=== PATIENT | female | born 1990 | race Two or more races ===

== ENCOUNTER 2017-12-05 22:25 | Inpatient (IN) | payer OTHER ==
--- NOTE | 2017-12-05 23:40 | HP ---
Past Medical History - Admission Chief Complaint: Vaginal bleeding in History of Present Illness: 27 yo @ 38 weeks gestation with previous in [place], presents c/ o vaginal bleeding. She was scheduled for on 12/12/17. History Source: Patient Limitations to Obtaining History: No Limitations - Past Medical History ...: 2 ...Para: 1 - Past Surgical History Past Surgical History: Yes: Hx Myomectomy: No Hx Transabdominal Cerclage: No - Smoking History Have you smoked in the past 12 months: No - Alcohol/Substance Use Hx Alcohol Use: No History of Substance Use: reports: None - Social History Usual Living Arrangement: Yes: With Spouse History of Recent Travel: No Family Disease History - Family Disease History Family History: Unremarkable Review of Systems - Review of Systems Constitutional: reports: No Symptoms Eyes: reports: No Symptoms HENT: reports: No Symptoms Neck: reports: No Symptoms Cardiovascular: reports: No Symptoms Respiratory: reports: No Symptoms Gastrointestinal: reports: No Symptoms Genitourinary: reports: Vaginal Bleeding Breasts: reports: No Symptoms Reported Musculoskeletal: reports: No Symptoms Integumentary: reports: No Symptoms Neurological: reports: No Symptoms Endocrine: reports: No Symptoms Hematology/Lymphatic: reports: No Symptoms Psychiatric: reports: No Symptoms Pain Intensity: 3 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 - Maternity Constitutional: Yes: Well Nourished Eyes: Yes: Conjunctiva Clear Neck: Yes: Supple Cardiovascular: Yes: Regular Rate and Rhythm Lungs: Clear to auscultation - Abdominal Exam/OB Number of Fetuses: Single Presentation: Vertex - Vaginal Exam/OB Dilatation (cm): 1 Effacement (%): 70 Presentation: Vertex/Position Station: -3 - 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 ...Motor Strength: WNL Psychiatric: Yes: Alert, Oriented Problem List - Problems (1) Previous section Code(s): Z98.891 - HISTORY OF UTERINE SCAR FROM PREVIOUS SURGERY (2) Vaginal bleeding Code(s): N93.9 - ABNORMAL UTERINE AND VAGINAL BLEEDING, UNSPECIFIED Assessment/Plan 38 weeks gestation Previous Vaginal bleeding Pre op for repeat
[2017-12-06 00:44] LABS: BASO % 0.3 % (0-2.0); EOS % 2.4 % (0-4.5); HEMATOCRIT 43.9 % (32.4-45.2); HEMOGLOBIN 14.8 GM/dL (10.7-15.3); MCH 29.3 pg (25.7-33.7); MCHC 33.7 g/dl (32.0-36.0); MEAN CELL VOLUME 86.8 fl (80-96); MEAN PLT VOLUME 10.1 fl (7.5-11.1); MONO % 6.8 % (3.8-10.2); NEUT % 66.5 % (42.8-82.8); PLATELET COUNT 209 K/MM3 (134-434); RBC 5.05 M/mm3 (3.60-5.2); RDW 14.2 % (11.6-15.6); WHITE BLOOD COUNT 10.4 K/mm3 (4.0-10.0)
[2017-12-06 00:57] VITALS: BMI 29.4
[2017-12-06 01:05] LABS: ANION GAP 11 MMOL/L (8-16); BLOOD UREA NITROGEN 6 mg/dL (7-18); CALCIUM 9.1 mg/dL (8.5-10.1); CHLORIDE 107 mmol/L (98-107); CO2 20 mmol/L (21-32); CREATININE 0.5 mg/dL (0.55-1.3); GLUCOSE,RANDOM 72 mg/dL (74-106); SODIUM 139 mmol/L (136-145)
[2017-12-06] MEDS ORDERED: morphine SULFATE/Preservative Free 0.5 MG/ML (1cc Syringe) ONE (01:43)
[2017-12-06] MEDS ORDERED: ceFAZolin SODIUM 1 GM VIAL ONE (02:01)
[2017-12-06] MEDS ORDERED: OXYTOCIN 10 UNITS/ML VIAL ONE (02:05)
[2017-12-06 02:29] LABS: INR 0.97 (0.83-1.09); PROTHROMBIN TIME (PATIENT) 11.4 SEC (9.7-13.0)
--- NOTE | 2017-12-06 02:32 | OP ---
Operative Note - Note: Operative Date: 12/06/17 Pre-Operative Diagnosis: Previous in labor Operation: Repeat Low Transverse Findings: Baby in LOT position Post-Operative Diagnosis: Same as Pre-op Surgeon: [facility] Television Rental Clerk: Ursula Farfan Anesthesia: Spinal Specimens Removed: Placenta Estimated Blood Loss (mls): 500 Operative Report Dictated: Yes
[2017-12-06] MEDS ORDERED: OXYTOCIN 20 UNITS in 0.9% NS 20 UNIT/1,000 ML INFUS.BAG IV ONE (02:56)
[2017-12-06] MEDS ORDERED: METHYLERGONOVINE MALEATE 0.2 MG/1 ML AMP IM PRN (03:09)
[2017-12-06] MEDS ORDERED: IBUPROFEN 800 MG/8 ML IJ IVPB PRN (03:09)
[2017-12-06] MEDS ORDERED: IBUPROFEN 600 MG TABLET (FP) PO PRN (03:09)
[2017-12-06] MEDS ORDERED: oxyCODONE HCL 5 MG TABLET PO PRN (03:09)
[2017-12-06] MEDS ORDERED: SIMETHICONE 80 MG TAB.CHEW (FP) PO PRN (03:09)
[2017-12-06] MEDS ORDERED: DEXTROSE 5%-LACTATED RINGERS 1,000 ML IV SCH (03:45)
[2017-12-06] MEDS ORDERED: CITRIC ACID/SODIUM CITRATE 30 ML UNIT-DOSE CUP PO ONE (03:45)
[2017-12-06] MEDS: OXYTOCIN 20 UNITS in 0.9% NS 20 UNIT/1,000 ML INFUS.BAG IV SCH ×2 (03:45→17:30)
[2017-12-06] MEDS ORDERED: ELECTROLYTE-148 SOLN 1,000 ML IV SCH (03:45)
[2017-12-06] MEDS: ONDANSETRON 4 MG/2 ML VIAL IVPUSH PRN ×2 (06:13→10:26)
[2017-12-06] MEDS: FERROUS SO4 325 MG TABLET (FP) PO SCH ×2 (10:11→22:10)
[2017-12-06] MEDS: PRENATAL VITAMINS W/ FOLIC ACID TABLET (FP) PO SCH (10:11)
[2017-12-07] MEDS ORDERED: BISACODYL 10 MG SUPP.RECT RC PRN (03:09)
--- NOTE | 2017-12-07 06:14 | PN ---
Post Progress Note - Subjective Subjective: 27 yo Para 2 status post repeat , seen and evaluated. Doing well. Post Day: 1 Type of Delivery: Repeat C/S Vital Signs: Vital Signs Temperature 98.6 F 12/07/17 02:00 Pulse Rate 84 12/07/17 02:00 Respiratory Rate 18 12/07/17 02:00 Blood Pressure 113/69 12/07/17 02:00 O2 Sat by Pulse Oximetry (%) Breast Exam: Yes: Soft Uterus: Yes: Fundus Firm Incision: Yes: Dressing dry and intact Abdomen/GI: Yes: Abdomen soft, Tolerating PO Lochia: Yes: Rubra Lochia, amount: Small Extremities: Yes: Calves non-tender Perineum: Yes: Intact Activity: Other (She's lying in bed) - Labs Labs: CBC WBC 10.4 K/mm3 (4.0-10.0) H 12/06/17 00:05 RBC 5.05 M/mm3 (3.60-5.2) 12/06/17 00:05 Hgb 14.8 GM/dL (10.7-15.3) 12/06/17 00:05 Hct 43.9 % (32.4-45.2) 12/06/17 00:05 MCV 86.8 fl (80-96) 12/06/17 00:05 MCH 29.3 pg (25.7-33.7) 12/06/17 00:05 MCHC 33.7 g/dl (32.0-36.0) 12/06/17 00:05 RDW 14.2 % (11.6-15.6) 12/06/17 00:05 Plt Count 209 K/MM3 (134-434) 12/06/17 00:05 MPV 10.1 fl (7.5-11.1) 12/06/17 00:05 Absolute Neuts (auto) 6.9 K/mm3 (1.5-8.0) 12/06/17 00:05 Neutrophils % 66.5 % (42.8-82.8) 12/06/17 00:05 Lymphocytes % 24.0 % (8-40) 12/06/17 00:05 Monocytes % 6.8 % (3.8-10.2) 12/06/17 00:05 Eosinophils % 2.4 % (0-4.5) 12/06/17 00:05 Basophils % 0.3 % (0-2.0) 12/06/17 00:05 Nucleated RBC % 0 % (0-0) 12/06/17 00:05 Problem List - Problems (1) Previous section Code(s): Z98.891 - HISTORY OF UTERINE SCAR FROM PREVIOUS SURGERY (2) Vaginal bleeding Code(s): N93.9 - ABNORMAL UTERINE AND VAGINAL BLEEDING, UNSPECIFIED (3) Status post repeat low transverse section Code(s): Z98.891 - HISTORY OF UTERINE SCAR FROM PREVIOUS SURGERY Assessment/Plan Status post repeat Low Transverse Stable Ambulation Analgesia as needed Continue routine post op care
[2017-12-07 07:59] LABS: BASO % 0.6 % (0-2.0); HEMOGLOBIN 13.3 GM/dL (10.7-15.3); LYMPH % 15.4 % (8-40); MCH 29.9 pg (25.7-33.7); MCHC 34.1 g/dl (32.0-36.0); MEAN CELL VOLUME 87.6 fl (80-96); MEAN PLT VOLUME 9.7 fl (7.5-11.1); MONO % 8.7 % (3.8-10.2); NEUT % 72.3 % (42.8-82.8); PLATELET COUNT 188 K/MM3 (134-434); RBC 4.45 M/mm3 (3.60-5.2); RDW 14.5 % (11.6-15.6); WHITE BLOOD COUNT 11.4 K/mm3 (4.0-10.0)
[2017-12-07] MEDS: PRENATAL VITAMINS W/ FOLIC ACID TABLET (FP) PO SCH (10:50)
[2017-12-07] MEDS: FERROUS SO4 325 MG TABLET (FP) PO SCH ×2 (10:50→21:19)
--- NOTE | 2017-12-07 12:06 | PN ---
Progress Note (short form) - Note Progress Note: Anesthesiology Post-op 27 y.o. woman POD#1 s/p C/S under spinal anesthesia. Pt. is awake and sitting comfortably with baby. She has no complaints and is able to walk without difficulty. VSS. 27 y.o. woman with stable post-operative course. Continue management as per primary team.
[2017-12-08] MEDS: PRENATAL VITAMINS W/ FOLIC ACID TABLET (FP) PO SCH (10:01)
[2017-12-08] MEDS: FERROUS SO4 325 MG TABLET (FP) PO SCH ×2 (10:01→21:25)
--- NOTE | 2017-12-08 11:30 | PN ---
Post Progress Note - Subjective Subjective: 27 yo Para 2 status post status post , seen and evaluated. Doing well. Post Day: 2 Type of Delivery: Repeat C/S Vital Signs: Vital Signs Temperature 98.9 F 12/08/17 08:52 Pulse Rate 69 12/08/17 08:52 Respiratory Rate 20 12/08/17 08:52 Blood Pressure 108/60 12/08/17 08:52 O2 Sat by Pulse Oximetry (%) Breast Exam: Yes: Soft Uterus: Yes: Fundus Firm Incision: Yes: Dressing dry and intact Abdomen/GI: Yes: Abdomen soft, Tolerating PO Lochia: Yes: Rubra Lochia, amount: Small Extremities: Yes: Calves non-tender Perineum: Yes: Intact Activity: Ambulating - Labs Labs: CBC WBC 11.4 K/mm3 (4.0-10.0) H 12/07/17 07:00 RBC 4.45 M/mm3 (3.60-5.2) 12/07/17 07:00 Hgb 13.3 GM/dL (10.7-15.3) 12/07/17 07:00 Hct 39.0 % (32.4-45.2) 12/07/17 07:00 MCV 87.6 fl (80-96) 12/07/17 07:00 MCH 29.9 pg (25.7-33.7) 12/07/17 07:00 MCHC 34.1 g/dl (32.0-36.0) 12/07/17 07:00 RDW 14.5 % (11.6-15.6) 12/07/17 07:00 Plt Count 188 K/MM3 (134-434) 12/07/17 07:00 MPV 9.7 fl (7.5-11.1) 12/07/17 07:00 Absolute Neuts (auto) 8.3 K/mm3 (1.5-8.0) H 12/07/17 07:00 Neutrophils % 72.3 % (42.8-82.8) 12/07/17 07:00 Lymphocytes % 15.4 % (8-40) D 12/07/17 07:00 Monocytes % 8.7 % (3.8-10.2) 12/07/17 07:00 Eosinophils % 3.0 % (0-4.5) 12/07/17 07:00 Basophils % 0.6 % (0-2.0) 12/07/17 07:00 Nucleated RBC % 0 % (0-0) 12/07/17 07:00 Problem List - Problems (1) Previous section Code(s): Z98.891 - HISTORY OF UTERINE SCAR FROM PREVIOUS SURGERY (2) Vaginal bleeding Code(s): N93.9 - ABNORMAL UTERINE AND VAGINAL BLEEDING, UNSPECIFIED (3) Status post repeat low transverse section Code(s): Z98.891 - HISTORY OF UTERINE SCAR FROM PREVIOUS SURGERY Assessment/Plan Status post repeat Low Transverse Stable Ambulation Analgesia as needed Continue routine post op care
--- NOTE | 2017-12-09 04:28 | PN ---
Post Progress Note Type of Delivery: Repeat C/S Vital Signs: Vital Signs Temperature 98.8 F 12/08/17 22:00 Pulse Rate 73 12/08/17 22:00 Respiratory Rate 18 12/08/17 22:00 Blood Pressure 112/81 12/08/17 22:00 O2 Sat by Pulse Oximetry (%) Breast Exam: Yes: Soft Uterus: Yes: Fundus Firm Incision: Yes: Dressing dry and intact Abdomen/GI: Yes: Abdomen soft Lochia: Yes: Rubra Lochia, amount: Small - Labs Labs: CBC WBC 11.4 K/mm3 (4.0-10.0) H 12/07/17 07:00 RBC 4.45 M/mm3 (3.60-5.2) 12/07/17 07:00 Hgb 13.3 GM/dL (10.7-15.3) 12/07/17 07:00 Hct 39.0 % (32.4-45.2) 12/07/17 07:00 MCV 87.6 fl (80-96) 12/07/17 07:00 MCH 29.9 pg (25.7-33.7) 12/07/17 07:00 MCHC 34.1 g/dl (32.0-36.0) 12/07/17 07:00 RDW 14.5 % (11.6-15.6) 12/07/17 07:00 Plt Count 188 K/MM3 (134-434) 12/07/17 07:00 MPV 9.7 fl (7.5-11.1) 12/07/17 07:00 Absolute Neuts (auto) 8.3 K/mm3 (1.5-8.0) H 12/07/17 07:00 Neutrophils % 72.3 % (42.8-82.8) 12/07/17 07:00 Lymphocytes % 15.4 % (8-40) D 12/07/17 07:00 Monocytes % 8.7 % (3.8-10.2) 12/07/17 07:00 Eosinophils % 3.0 % (0-4.5) 12/07/17 07:00 Basophils % 0.6 % (0-2.0) 12/07/17 07:00 Nucleated RBC % 0 % (0-0) 12/07/17 07:00 Problem List - Problems (1) Status post repeat low transverse section Assessment/Plan: pt s/p c/s doing well ambulation encouraged Code(s): Z98.891 - HISTORY OF UTERINE SCAR FROM PREVIOUS SURGERY
[2017-12-09 07:46] LABS: BASO % 0.7 % (0-2.0); EOS % 5.9 % (0-4.5); HEMATOCRIT 42.3 % (32.4-45.2); LYMPH % 21.5 % (8-40); MCH 29.1 pg (25.7-33.7); MCHC 33.2 g/dl (32.0-36.0); MEAN CELL VOLUME 87.8 fl (80-96); MEAN PLT VOLUME 9.1 fl (7.5-11.1); MONO % 8.9 % (3.8-10.2); PLATELET COUNT 219 K/MM3 (134-434); RBC 4.82 M/mm3 (3.60-5.2); RDW 14.7 % (11.6-15.6); WHITE BLOOD COUNT 8.9 K/mm3 (4.0-10.0)
[2017-12-09 08:32] VITALS: BP 121/78; PULSE 69; TEMP 98
[2017-12-09] MEDS: FERROUS SO4 325 MG TABLET (FP) PO SCH (10:55)
[2017-12-09] MEDS: PRENATAL VITAMINS W/ FOLIC ACID TABLET (FP) PO SCH (10:55)
--- NOTE | 2017-12-11 15:31 | PATH ---
Surgical Pathology Report Patient Name: CHAPINCITO MORROW Med. Rec. #: [id number] /Age/Gender: 1990 (Age: 27) / F Account: [id number] Location: [facility] OBS/ECHO VASC TECH Taken: 12/06/2017 Received: 12/07/2017 Reported: 12/11/2017 Physicians: Claudette Roach M.D. Specimen(s) Received PLACENTA Clinical History Repeat Final Diagnosis PLACENTA, SECTION: 471 G THIRD TRIMESTER PLACENTA WITH TRIVASCULAR UMBILICAL CORD AND UNREMARKABLE PLACENTAL MEMBRANES. Electronically Signed Pat Danielle M.D. Gross Description The specimen is received fresh labeled placenta and is a 471 gram, 16.0 x 15.0 x 2.8 cm. placenta with attached membranes and umbilical cord. The attached membranes are villegas, thick, opaque and insert marginally. The umbilical cord measures 23 cm. in length and averages 1.1 cm. in diameter. The cord inserts at the margin. No true knots or strictures are identified. Cut surface of the umbilical cord reveals 3 vessels. The surface is martinez-blue with moderate fibrin deposition and appropriate caliber vessels. The maternal surface is red-brown with focal defects. Sectioning reveals red-brown, spongy parenchyma. No lesions are identified. Heel Lift Gouger sections are submitted in three cassettes as follows: 1- membrane rolls and umbilical cord; 2-3- full thickness sections of placenta. /12/10/2017 saudi/12/10/2017
--- NOTE | 2018-01-17 21:23 | OP ---
DATE OF OPERATION: 12/06/2017 PREOPERATIVE DIAGNOSIS: Previous section, in labor. POSTOPERATIVE DIAGNOSIS: Previous section, in labor. PROCEDURE: Repeat low transverse section. SURGEON: Claudette Roach MD ORCHID GROWER: Ursula Farfan MD ANESTHESIA: Spinal. COMPLICATIONS: None. ESTIMATED BLOOD LOSS: 500 mL PROCEDURE: Patient was taken to the operating room where spinal anesthesia was administered. Patient was then prepped and draped in the proper sterile fashion. A Pfannenstiel skin incision was made and carried down through the underlying layer of fascia. The fascia was incised in the midline and extended laterally. The superior aspect of the fascial incision was then grasped with Delia clamp, elevated and the rectus muscles were dissected off bluntly. Attention was then turned to the inferior aspect of the fascial incision, which in a similar fashion was then grasped with Delia clamp, elevated, and the rectus muscle was dissected off bluntly. The rectus muscle was then in the midline. The peritoneum was identified and entered sharply with Metzenbaum scissors. The peritoneal incision was then extended superiorly and inferiorly with good visualization of the bladder. The vesicouterine peritoneum was then grasped with a pickup and entered sharply with Metzenbaum scissors. This incision was extended laterally and a bladder flap was created digitally. The lower uterine segment was incised using a 10-blade. This incision was extended laterally and the head delivered atraumatically. Nose and mouth were suctioned and the cord was clamped and cut. The was handed to the awaiting electric stove installer. The placenta was removed manually. The uterus was exteriorized and cleared of all clots and debris. The uterine incision was repaired using 0 Biosyn in a running locked fashion. A second layer of the same suture was used as a means to provide excellent hemostasis. The pelvis was completely irrigated. The uterus was returned to the abdomen. The peritoneum was closed using 2-0 Biosyn and the fascia was reapproximated using 0 Vicryl in a running fashion. The skin was closed with mark. Patient tolerated the procedure well. Patient was then taken to the PACU in stable condition. PATHOLOGY: Placenta. Asya SINGH/[id number]
== END 2017-12-09 12:30 | disposition home or self-care (01) | DRG 540 ==
LOC: JDEL 22:25 → JLDR 22:40 → J3W 12-06 04:30
PROVIDERS: ADMIT Obstetrics & Gynecology; ATTEND Obstetrics & Gynecology
PROC: 10D00Z1 Extraction of Products of Conception, Low, Open Approach (ICD-10-PCS; principal; 2017-12-06)
DX: O34.219 Maternal care for unspecified type scar from previous cesarean delivery (principal); Z3A.38 38 weeks gestation of pregnancy; Z37.0 Single live birth
CPT/HCPCS: 36415; 59025; 80048; 85025; 85610; 85730; 86593; 86850; 86900; 86901; 87389; 88307-TC; 90686; G0008

== ENCOUNTER 2019-10-31 07:09 | Inpatient (IN) | payer OTHER ==
--- NOTE | 2019-10-31 07:57 | HP ---
Past Medical History - Primary Care Physician PCP:: Raghu Sam (term ) - Admission Chief Complaint: term History of Present Illness: Previous c/section. Uneventful gestation. GBS neg. Covid neg. 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 TECHNICIAN: No: Alzheimer's, CVA, Dementia, Migraine, Multiple Sclerosis, Peripheral Neuropathy, Parkinson's, Seizure, Syncope, TIA, Vertigo, Other Cardiovascular: No: AFIB, Aneurysm, Aortic Insufficiency, Aortic Stenosis, CAD, CHF, Deep Vein Thrombosis, HTN, Hyperlipdemia, RI, Mitral Insufficiency, Mitral Stenosis, Murmur, Pulmonary Hypertension, Other Pulmonary: No: Asthma, Bronchitis, Cancer, COPD, O2 Dependent, Pneumonia, Previously Intubated, Pulmonary Embolus, Pulmonary Fibrosis, Sleep Apnea, Other Gastrointestinal: No: Ascites, Cancer, Constipation, Crohn's Disease, Diverticulitis, Diverticulosis, Esophageal Varices, Gastritis, GERD, GI Bleed, Hemorrhoids, Hiatal Hernia, Inflamatory Bowel Disease, Irritable Bowel Disease, Pancreatitis, Peptic Ulcer Disease, Ulcerative Colitis, Other Hepatobiliary: No: Cirrhosis, Cholelithiasis, Cholecystitis, Choledocholithiasis, Hepatitis A, Hepatitis B, Hepatitis C, Other Renal/: No: Renal Failure, Renal Inusuff, BPH, Cancer, Hematuria, Hemodialysis, Neurogenic Bladder, Renal Calculi, UTI, Other ... Weeks Gestation by Dates: 39.1 ...EDC by Dates: 11/06/19 Heme/Onc: No: Anemia, B12 Deficiency, Bleeding Disorder, Cancer, Current Chemotherapy, Current Radiation Therapy, Hemochromatosis, Hypercoaguable State, Myeloproliferative Synd, Sickle Cell Disease, Sickle Cell Trait, Thrombocytopenia, Other Infectious Disease: No: AIDS, C-Diff, Herpes Zoster, HIV, MRSA, STD's, Tuberculosis, VREF, Other Psych: No: Addictions, Anxiety, Bipolar, Depression, Panic, Psychosis, Schizophrenia, Other Musculoskeletal: No: Bursitis, Chronic low back pain, Hemiparesis, Hemiplegia, Osteoarthritis, Paraplegia, Other Rheumatology: No: Fibromyalgia, Gout, Lupus, Rheumatoid Arthritis, Sarcoidosis, Vasculitis, Other Endocrine: No: [place]'s Disease, Irving's Disease, Diabetes Insipidus, Diabetes Mellitus, Hyperparathyroidism, Hyperthyroidism, Hypothyroidism, Osteopenia, SIADH, Other - Past Surgical History Past Surgical History: Yes: . No: None, AAA Repair, AICD, Amputation, Appendectomy, Arthrosocopy, AV Fistula/Graft, Bariatric Surgery, Breast Biopsy, Bypass, CABG, Carotid Endarterectomy, Cataract Removal, Cholecystectomy, Colectomy, Colonoscopy, Colostomy, Craniotomy, Cystectomy, Hernia Repair, Hysterectomy, Ileal Conduit, Ileosotomy, Joint Replacement, Kidney Transplant, Laminectomy, Liver Transplant, Mastectomy, Nephrectomy, Oopherectomy, Orchiectomy, Permanent Pacemaker, Prostatectomy, Splenectomy, Stent, Thoracotomy, TURP, Tonsillectomy, Tubal Ligation, Upper Endoscopy, Valve Replacement, Vasectomy, Vein Stripping/Ligation Hx Myomectomy: No Hx Transabdominal Cerclage: No - Smoking History Smoking history: Never smoked Have you smoked in the past 12 months: No - Alcohol/Substance Use Hx Alcohol Use: No History of Substance Use: reports: None - Social History History of Recent Travel: No Home Medications - Allergies Allergies/Adverse Reactions: Allergies Allergy/AdvReac Type Severity Reaction Status Date / Time No Known Allergies Allergy Verified 12/06/17 03:02 Family Medical History Family History: Unremarkable Review of Systems - Review of Systems Constitutional: reports: No Symptoms Eyes: reports: No Symptoms HENT: reports: No Symptoms Neck: reports: No Symptoms Cardiovascular: reports: No Symptoms Respiratory: reports: No Symptoms Gastrointestinal: reports: No Symptoms Genitourinary: reports: No Symptoms Breasts: reports: No Symptoms Reported Musculoskeletal: reports: No Symptoms Integumentary: reports: No Symptoms Neurological: reports: No Symptoms Endocrine: reports: No Symptoms Hematology/Lymphatic: reports: No Symptoms Psychiatric: reports: No Symptoms 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 - Maternity Constitutional: Yes: Well Nourished, No Distress, Calm Eyes: Yes: WNL, Conjunctiva Clear, EOM Intact HENT: Yes: WNL, Atraumatic, Normocephalic Neck: Yes: WNL, Supple, Trachea Midline Cardiovascular: Yes: WNL, Regular Rate and Rhythm Breast(s): Yes: WNL - Abdominal Exam/OB Fundal Height: 38 Number of Fetuses: Single Presentation: Vertex Contractions: No Monitor Mode: External Heart Rate (range): 140 Heart Rate Location: [facility] Category: I Accelerations: Uniform Decelerations: None - Vaginal Exam/OB Vaginal Bleeding: No Dilatation (cm): 0 Effacement (%): 0 Amniotic Membrane Status: Intact Station: -2 - 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 Musculoskeletal: Yes: WNL Extremities: Yes: WNL Integumentary: Yes: WNL Psychiatric: Yes: WNL Problem List - Problems (1) Term Code(s): Z34.90 - ENCNTR FOR SUPRVSN OF NORMAL , UNSP, UNSP TRIMESTER (2) Previous section Code(s): Z98.891 - HISTORY OF UTERINE SCAR FROM PREVIOUS SURGERY Assessment/Plan at term. Previous c/section. For repeat c/section. All fully discussed. Risks, possible complications reviewed. Patient understands and consents.
[2019-10-31 08:18] VITALS: BMI 29.3
[2019-10-31 08:38] LABS: BASO % 0.4 % (0-2.0); EOS % 3.1 % (0-4.5); HEMATOCRIT 36.2 % (32.4-45.2); HEMOGLOBIN 12.4 GM/dL (10.7-15.3); LYMPH % 26.4 % (8-40); MCH 28.4 pg (25.7-33.7); MCHC 34.2 g/dl (32.0-36.0); MEAN PLT VOLUME 10.6 fl (7.5-11.1); MONO % 7.1 % (3.8-10.2); PLATELET COUNT 190 K/MM3 (134-434); RBC 4.36 M/mm3 (3.60-5.2); RDW 13.7 % (11.6-15.6); WHITE BLOOD COUNT 10.2 K/mm3 (4.0-10.0)
[2019-10-31 08:45] LABS: INR 0.99 (0.83-1.09); PROTHROMBIN TIME (PATIENT) 11.7 SEC (9.7-13.0)
[2019-10-31] MEDS ORDERED: CITRIC ACID/SODIUM CITRATE 30 ML UNIT-DOSE CUP PO ONE ×2 (08:45→09:45)
[2019-10-31] MEDS ORDERED: ELECTROLYTE-148 SOLN 500 ML IV SCH (08:45)
[2019-10-31 08:48] LABS: ACTIVATED PTT 30.1 SECONDS (25.2-36.5)
[2019-10-31] MEDS: ELECTROLYTE-148 SOLN 1,000 ML IV SCH (09:00)
[2019-10-31 09:03] LABS: BLOOD UREA NITROGEN 9.6 mg/dL (7-18); CALCIUM 8.5 mg/dL (8.5-10.1); CREATININE 0.5 mg/dL (0.55-1.3); POTASSIUM 3.8 mmol/L (3.5-5.1)
[2019-10-31] MEDS ORDERED: PROPOFOL 20 ML ONE (09:29)
[2019-10-31] MEDS ORDERED: morphine SULFATE/PF 0.5 MG/ML (2cc Syringe - QUVA) ONE (09:30)
[2019-10-31] MEDS ORDERED: ONDANSETRON 4 MG/2 ML VIAL IVPB PRN (09:42)
[2019-10-31] MEDS ORDERED: SIMETHICONE 80 MG TAB.CHEW (FP) PO PRN (09:42)
[2019-10-31] MEDS ORDERED: ACETAMINOPHEN 1000 MG/100 ML VIAL (NON FORMULARY) IVPB PRN (09:42)
[2019-10-31] MEDS ORDERED: oxyCODONE HCL 5 MG TABLET PO PRN (09:42)
[2019-10-31] MEDS ORDERED: ePHEDrine SULFATE 50 MG/1 ML AMPULE ONE (09:59)
[2019-10-31] MEDS ORDERED: ceFAZolin SODIUM 1 GM VIAL ONE (10:03)
[2019-10-31] MEDS ORDERED: OXYTOCIN 20 UNITS in 0.9% NS 40 UNIT/2,000 ML INFUS.BAG IV ONE (10:20)
[2019-10-31] MEDS ORDERED: morphine SULFATE/PF 0.5 MG/ML (2cc Syringe - QUVA) EP ONE (11:26)
[2019-10-31] MEDS ORDERED: ONDANSETRON 4 MG/2 ML VIAL IVPUSH PRN (11:26)
[2019-10-31] MEDS ORDERED: IBUPROFEN 800 MG/8 ML IJ IVPB ONE (12:52)
[2019-10-31] MEDS: IBUPROFEN 800 MG/8 ML IJ IVPB PRN (12:55)
--- NOTE | 2019-10-31 13:07 | OP ---
Operative Note - Note: Operative Date: 10/31/19 Pre-Operative Diagnosis: full term for elective Operation: Repeat Post-Operative Diagnosis: Same as Pre-op Surgeon: Raghu Sam Elevator Examiner And Adjuster: Janae Gloria Anesthesiologist/OCEAN FORWARDER: Jaylin Thomas MD Anesthesia: Spinal, MAC Estimated Blood Loss (mls): 600 Operative Report Dictated: Yes
--- NOTE | 2019-10-31 13:08 | SURG ---
Surgery Park Maintenance Technician Note Park Maintenance Technician: Janae Gloria PA-C Date of Service: 10/31/19 Diagnosis: full term for elective Procedure: Repeat I was present for the entirety of the operative procedure. For further detail, please refer to operative report. Visit type - Case Type Case Type: Scheduled - Emergency Emergency Visit: No - New patient This patient is new to me today: Yes Date on this admission: 10/31/19
--- NOTE | 2019-10-31 13:09 | OP ---
DATE OF OPERATION: DATE OF DICTATION: 10/31/2019 PREOPERATIVE DIAGNOSIS: Intrauterine at term, previous section x2. POSTOPERATIVE DIAGNOSIS: Intrauterine at term, previous section x2, adhesions. PROCEDURE: 1. Repeat low segment transverse section. 2. Resection of keloid. 3. Lysis of adhesions. SURGEON: Raghu Reardon MD CASEWORKER PROTECTIVE SERVICES: Janae Gloria PA-C ANESTHESIA: Spinal, Jaylin Thomas MD PROCEDURE & FINDINGS: Under excellent spinal block following routine prep and drape, old scar was excised. The incision was carried transversely through the subcutaneous tissue and fascia. Fascia was dissected off the recti muscles which were divided in the midline. Peritoneum was entered sharply in the upper part of the incision and extended vertically. Term uterus with normal adnexa was noted. There were adhesions between omentum and bladder to the anterior wall of the uterus and fundus. All adhesions were sharply lysed and the anatomy was restored. Hemostasis was attended to it carefully. Lower uterine segment was then opened transversely with scalpel and extended laterally with bandage scissors. Amniotic membrane was ruptured and clear amniotic fluid was noted. Female live was delivered through the hysterotomy, breathing and cried spontaneously. The baby was suctioned. The cord was divided with a delay. Baby was handed to the team and received 's 9 and 9. Placenta was removed from the uterine cavity. Cavity was cleaned and internal os was dilated with a sponge stick. Hysterotomy was closed with single layer interlocking Biosyn 0 suture. Uterus was placed in the pelvis anatomically and lavage was carried out. Hemostasis was attended to meticulously. Abdomen was closed in layers. Peritoneum was closed with continuous running Biosyn 0, fascia with continuous running Vicryl 1 sutures. Subcutaneous tissue was closed with interrupted Biosyn 0 sutures and skin was approximated with subcuticular suture and Steri-Strips. Patient withstood the procedure very well. The only complication was tiny, pin point Bovie burn on the anterior thigh which was immediately noted and patient was subsequently informed. Estimated blood loss was 600 mL. Patient was transferred to the recovery room stable and comfortable. Urine was clear in the Gottlieb catheter bag and ample. RAGHU REARDON MD JR/[id number]
[2019-10-31] MEDS: OXYTOCIN 20 UNITS in 0.9% NS 20 UNIT/1,000 ML INFUS.BAG IV SCH (14:26)
[2019-10-31] MEDS ORDERED: SENNOSIDES/DOCUSATE COMBO (SENNA PLUS) TABLET (UD) PO PRN (22:00)
[2019-11-01] MEDS: IBUPROFEN 800 MG/8 ML IJ IVPB PRN (04:03)
[2019-11-01 08:14] LABS: BASO % 0.2 % (0-2.0); EOS % 1.7 % (0-4.5); HEMATOCRIT 37.3 % (32.4-45.2); HEMOGLOBIN 12.4 GM/dL (10.7-15.3); LYMPH % 11.7 % (8-40); MCH 27.6 pg (25.7-33.7); MCHC 33.3 g/dl (32.0-36.0); MEAN CELL VOLUME 82.9 fl (80-96); MEAN PLT VOLUME 10.3 fl (7.5-11.1); MONO % 6.7 % (3.8-10.2); NEUT % 79.7 % (42.8-82.8); PLATELET COUNT 190 K/MM3 (134-434); RBC 4.51 M/mm3 (3.60-5.2); RDW 13.6 % (11.6-15.6); WHITE BLOOD COUNT 15.7 K/mm3 (4.0-10.0)
--- NOTE | 2019-11-01 08:18 | PN ---
Progress Note (short form) - Note Progress Note: Surgery POD #1 repaat . Patient seen and examined on AM rounds with no complaints. She states her pain is controlled and she is OOB ambulating and voiding without limitation. Denies N/V/Fever , chills, CP and SOB. Vital Signs Temp 98.2 F 11/01/19 06:00 Pulse 94 H 11/01/19 06:00 Resp 20 11/01/19 06:00 BP 110/58 L 11/01/19 06:00 Pulse Ox 96 11/01/19 06:00 Intake & Output 10/31/19 10/31/19 11/01/19 11:59 23:59 11:59 Intake Total 1200 1150 500 Output Total 50 700 300 Balance 1150 450 200 Weight 171 lb Intake: IV 1200 900 500 NORMAL SALINE+20 UNITS 900 500 OXYTOCIN - 20 unit In 1, 000 ml @ 125 mls/hr IV ASDIR ALVARO Rx#:[id number] Plasma-Lyte 148 - 1,000 1200 ml @ 125 mls/hr IV ASDIR ALVARO Rx#:[id number] IVPB 250 Output: Urine 50 700 300 Gottlieb 50 700 Void 300 Other: Voiding Method Toilet Toilet Height 5 ft 4 in Body Mass Index (BMI) 29.3 Weight 6 lb 14 oz Length 19 in CBC, BMP 10/31/19 08:10 AM labs pending PE: A&Ox3, NAD Unlabored resp on RA ABD: SOFT, ND, slightly distended appropriate to status. incision with steris c/d/i, no tracking erythema or evidence of collection or active d/c. B/L LE compartments soft, supple and non-tender with +2 DP pulses Problem List - Problems (1) Status post repeat low transverse section Assessment/Plan: POD #1 repeat patient doing well. -Continue diet -encourage breast feeding -OOB as tolerated encourage ambulation -keep incision clean and dry Evaluation and plan discussed with Dr Sam Code(s): Z98.891 - HISTORY OF UTERINE SCAR FROM PREVIOUS SURGERY
--- NOTE | 2019-11-01 08:29 | PN ---
Progress Note (short form) - Note Progress Note: Anesthesiologist post op note POD#1. S/P repeat under spinal anesthesia with duramorph. Pat seen and examined, VSS, Pain well controlled. 2-04/25. Ambulating. No apparent post anesthesia complications.
--- NOTE | 2019-11-01 09:29 | PN ---
Progress Note (short form) - Note Progress Note: Postop day #1. Vital signs stable. Patient is doing well. Out of bed, eating, drinking. Breast-feeding discussed. PE as per Ms. Gloria. Problem List - Problems (1) Term Code(s): Z34.90 - ENCNTR FOR SUPRVSN OF NORMAL , UNSP, UNSP TRIMESTER (2) Previous section Code(s): Z98.891 - HISTORY OF UTERINE SCAR FROM PREVIOUS SURGERY
[2019-11-01] MEDS ORDERED: BISACODYL 10 MG SUPP.RECT RC PRN (09:42)
[2019-11-01] MEDS: ACETAMINOPHEN 325 MG TABLET (FP) PO PRN (14:50)
[2019-11-01] MEDS: IBUPROFEN 600 MG TABLET (FP) PO PRN (14:50)
[2019-11-01] MEDS: OXYTOCIN 20 UNITS in 0.9% NS 20 UNIT/1,000 ML INFUS.BAG IV SCH (19:55)
[2019-11-01] MEDS: ELECTROLYTE-148 SOLN 1,000 ML IV SCH (21:44)
[2019-11-02] MEDS: IBUPROFEN 600 MG TABLET (FP) PO PRN ×3 (02:44→23:46)
[2019-11-02] MEDS: ACETAMINOPHEN 325 MG TABLET (FP) PO PRN ×3 (02:45→23:47)
[2019-11-02 08:36] LABS: BASO % 0.5 % (0-2.0); EOS % 3.9 % (0-4.5); HEMATOCRIT 32.6 % (32.4-45.2); HEMOGLOBIN 11.1 GM/dL (10.7-15.3); LYMPH % 21.4 % (8-40); MCH 28.6 pg (25.7-33.7); MCHC 34.1 g/dl (32.0-36.0); MEAN CELL VOLUME 83.8 fl (80-96); MEAN PLT VOLUME 10.2 fl (7.5-11.1); MONO % 7.1 % (3.8-10.2); NEUT % 67.1 % (42.8-82.8); PLATELET COUNT 178 K/MM3 (134-434); RBC 3.89 M/mm3 (3.60-5.2); RDW 13.4 % (11.6-15.6); WHITE BLOOD COUNT 12.6 K/mm3 (4.0-10.0)
--- NOTE | 2019-11-02 11:26 | PN ---
Progress Note (short form) - Note Progress Note: Doing well. Ready to go home but wants to wait for her baby. Normal functions. Incision is healing very well. All discussed. Problem List - Problems (1) Term Code(s): Z34.90 - ENCNTR FOR SUPRVSN OF NORMAL , UNSP, UNSP TRIMESTER (2) Previous section Code(s): Z98.891 - HISTORY OF UTERINE SCAR FROM PREVIOUS SURGERY
--- NOTE | 2019-11-02 18:00 | PATH ---
Surgical Pathology Report Patient Name: CHAPINCITO MORROW Med. Rec. 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 Electronically Signed Pat Danielle M.D. Gross Description The specimen is received fresh labeled placenta and is a 712 gram, 20 x 20 x 2 cm. placenta with attached membranes and umbilical cord. The attached membranes are villegas, opaque, and insert marginally. The umbilical cord measures 29 cm. in length and averages 1.2 cm. in diameter. The cord inserts eccentrically, 5 cm. to the nearest margin. No true knots or strictures are identified. Cut surface of the umbilical cord reveals 3 vessels. The surface is martinez-blue with minimal fibrin deposition and appropriate caliber vessels. The maternal surface is red-brown with focal defects. Sectioning reveals red-brown, spongy parenchyma. No lesions are identified. Winch Stripper sections are submitted in three cassettes as follows: 1- membrane rolls and umbilical cord; 2-3- full thickness sections of placenta. [facility]/11/01/2019 san/11/01/2019
--- NOTE | 2019-11-02 20:28 | DS ---
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 Vital Signs: Vital Signs Temperature 98.5 F 11/02/19 09:16 Pulse Rate 93 H 11/02/19 09:16 Respiratory Rate 18 11/02/19 09:16 Blood Pressure 109/73 11/02/19 09:16 O2 Sat by Pulse Oximetry (%) 100 11/02/19 09:16 Constitutional: Yes: Well Nourished, No Distress, Calm Eyes: Yes: WNL, Conjunctiva Clear, EOM Intact HENT: Yes: WNL, Atraumatic, Normocephalic Neck: Yes: WNL, Supple, Trachea Midline Cardiovascular: Yes: WNL, Regular Rate and Rhythm Respiratory: Yes: WNL, Regular, CTA Bilaterally Gastrointestinal: Yes: WNL ...Rectal Exam: Yes: WNL Renal/: Yes: WNL Breast(s): Yes: WNL Musculoskeletal: Yes: WNL Extremities: Yes: WNL Integumentary: Yes: WNL Neurological: Yes: WNL, Alert, Oriented ...Motor Strength: WNL Psychiatric: Yes: WNL, Alert, Oriented Labs: CBC, BMP 11/02/19 07:50 10/31/19 08:10 Delivery - Delivery Section: Repeat, Low Flap Transverse Type of Anesthesia: Spinal Episiotomy/Laceration: None EBL (cc): 600 Delivery, Single - Stages of Labor Date of Delivery: 10/31/19 Time of Delivery: 10:14 Time Placenta Delivered: 10:15 Placenta: Yes: Manual Removal - 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 Present: Yes Name: Pancho Fontanez Gender: Female Weight: 6 lb 14 oz Position: Left, OA Total Hours ROM (Hrs/Mins): 0Hrs/1MIn - 1 Minute Total Score: 9 5 Minutes Total Score: 9 - [place] Feeding Plan Initial Plan: Elected not to breastfeed exclusively throughout hospitalization Remarks - Remarks Remarks: excellent recovery Discharge Summary Problems reviewed: Yes Reason For Visit: C SECTION Current Active Problems Term (Acute) Hospital Course: uneventful Condition: Good - Instructions Diet, Activity, Other Instructions: Physical activity Resume your normal everyday activity as tolerated no heavy lifting or exercise until seen by your surgeon. You may walk unlimited randi of and climb stairs. You may resume driving the car when you feel safe and comfortable behind the wheel. No sexual activity as instructed. Wound care If you have a bandage, leave it on, and keep dry for 48-72 hours. After that time discard the outer bandage. If they are tapes on the skin under the out of bandage leave them in place. They will peel off in the next 7 to 10 days. Do Not Peel them off. You may shower the day after surgery. If there are tapes present on the skin, you may shower over them. Diet There are no dietary restrictions. Eat healthy, high-fiber foods. Drink 6 to 8 glasses of liquid each day. This will assist in keeping your bowels are regular. Pain management You may take Tylenol or acetaminophen or Ibuprofen (for example, Motrin, Advil etc.) from my pain prescription medication is ordered should be taken as prescribed for moderate to severe pain. Call MD for any of the [phone] Severe pain not relieved by medication Fever of 101 or higher Excessive bleeding or drainage on dressing Inability to urinate Disposition: HOME - Home Medications Comprehensive Discharge Medication List: Ambulatory Orders Vitamins (Sjr) - 1 tab PO DAILY 10/31/19
--- NOTE | 2019-11-03 08:22 | PN ---
Progress Note (short form) - Note Progress Note: Doing well. Discharge today. Problem List - Problems (1) Term Code(s): Z34.90 - ENCNTR FOR SUPRVSN OF NORMAL , UNSP, UNSP TRIMESTER (2) Previous section Code(s): Z98.891 - HISTORY OF UTERINE SCAR FROM PREVIOUS SURGERY
[2019-11-03 08:55] VITALS: BP 118/79; PULSE 73; TEMP 97.5
== END 2019-11-03 13:30 | disposition home or self-care (01) | DRG 540 ==
LOC: JLDR 07:09 → J3W 14:26
PROVIDERS: ADMIT Specialist; ATTEND Specialist
PROC: 10D00Z1 Extraction of Products of Conception, Low, Open Approach (ICD-10-PCS; principal; 2019-10-31)
PROC: 0DNW0ZZ Release Peritoneum, Open Approach (ICD-10-PCS; 2019-10-31)
DX: O82 Encounter for cesarean delivery without indication (principal); O34.211 Maternal care for low transverse scar from previous cesarean delivery; Z37.0 Single live birth; O99.89 Other specified diseases and conditions complicating pregnancy, childbirth and the puerperium; N73.6 Female pelvic peritoneal adhesions (postinfective); Z3A.39 39 weeks gestation of pregnancy
CPT/HCPCS: 36415; 80048; 85025; 85610; 85730; 86780; 86850; 86900; 86901; 88307-TC